=== PATIENT | female | born 1995 | race Caucasian/White ===

== ENCOUNTER 2023-03-22 08:41 | Emergency (ER) | payer BC, SELFPAY ==
[2023-03-22 08:52] VITALS: BP 137/91; PULSE 80; RESP 21; TEMP 36.8; O2SAT 96; BMI 24.5
--- NOTE | 2023-03-22 08:57 | CT_ITS ---
PROCEDURE INFORMATION: Exam: CT Head Without Contrast Exam date and time: 03/22/2023 9:31 AM Age: 27 years old Clinical indication: Pain and injury or trauma; Fall; Blunt trauma (contusions or hematomas); Headache; Additional info: Fall head injury TECHNIQUE: Imaging protocol: Computed tomography of the head without contrast. Radiation optimization: All CT scans at this facility use at least one of these dose optimization techniques: automated exposure control; mA and/or kV adjustment per patient size (includes targeted exams where dose is matched to clinical indication); or iterative reconstruction. REPORTING DATA: Count of CT and Cardiac NM exams in prior 12 months: This patient has received 0 known CTs and 0 known cardiac nuclear medicine studies in the 12 months prior to the current study. COMPARISON: No relevant prior studies available. FINDINGS: Limitations: Motion artifact does moderately limit the sensitivity of this examination. Brain: Normal. No hemorrhage. Unremarkable white matter. No mass effect. Cerebral ventricles: No ventriculomegaly. Paranasal sinuses: Visualized sinuses are unremarkable. No fluid levels. Mastoid air cells: Visualized mastoid air cells are well aerated. Bones/joints: Unremarkable. No acute fracture. Soft tissues: Fractures of the nose are discussed separately. IMPRESSION: 1. Fractures of the nose are discussed separately. 2. No acute intracranial process is identified.
--- NOTE | 2023-03-22 08:57 | CT_ITS ---
PROCEDURE INFORMATION: Exam: CT Maxillofacial Without Contrast Exam date and time: 03/22/2023 9:33 AM Age: 27 years old Clinical indication: Pain and injury or trauma; Fall; Nose pain; Blunt trauma (contusions or hematomas); Additional info: Fall nose injury TECHNIQUE: Imaging protocol: Computed tomography of the face without contrast. Radiation optimization: All CT scans at this facility use at least one of these dose optimization techniques: automated exposure control; mA and/or kV adjustment per patient size (includes targeted exams where dose is matched to clinical indication); or iterative reconstruction. REPORTING DATA: Count of CT and Cardiac NM exams in prior 12 months: This patient has received 0 known CTs and 0 known cardiac nuclear medicine studies in the 12 months prior to the current study. COMPARISON: CT HEAD/BRAIN WO CON 03/22/2023 9:31 AM FINDINGS: Orbital cavities: Orbits are normal. Globes are unremarkable. Bones/joints: Comminuted fractures of the nose and buckling of the nasal septum can be seen with anterior fragments directed toward the left. No other midface fracture is identified. There is gas in the soft tissues of the right lateral nose probably reflecting bony perforation of the deep soft tissues at the level of image 3:45. Paranasal sinuses: Normal. No air-fluid levels. Soft tissues: Unremarkable. Nasal cavity: There is mucosal thickening of the anterior nasal passages. There is no evidence of a radio-opaque foreign body. Dental: Moderate dental disease is seen. IMPRESSION: 1. Comminuted fractures of the nose and buckling of the nasal septum can be seen with anterior fragments directed toward the left. No other midface fracture is identified. 2. There is gas in the soft tissues of the right lateral nose probably reflecting bony perforation of the deep soft tissues at the level of image 3:45. 3. There is mucosal thickening of the anterior nasal passages. There is no evidence of a radio-opaque foreign body.
[2023-03-22 09:00] VITALS: BP 119/67; PULSE 79; O2SAT 95
--- NOTE | 2023-03-22 09:02 | HMH.EDGENADL ---
Discharge Plan Disposition Patient Disposition: Home, Self-Care Prescriptions Prescriptions: New hydrocodone-acetaminophen 5-325 mg tablet 1 tab PO Q6H PRN (Reason: pain) 3 Days Qty: 12 0RF Referrals Follow up/Referrals: Rodolfo Tucker MD [Physician] - See instructions (Given appointment with Dr. Patterson on at 2 PM tomorrow.) Activity Restrictions/Add. Instructions Additional Instructions/Restrictions: Follow-up with Dr. Tucker at 2 PM tomorrow. Clinical Impressions Clinical Impression: Closed displaced fracture of nasal bone Discharge ED Provider: Valarie De General Adult HPI General Chief complaint: PAIN Stated complaint: [id number] Nose Injury,home Time Seen by Provider: 03/22/23 08:52 Mode of Arrival: Wheelchair Source of Information: Patient Limitations: No Limitations Description of Symptoms (Recalled from ER Triage Doc. by RN): pt to ed c/o nasal pain. pt reports stepping into a vehicle, slipping on the running board and falling face first into the door panel. pt denies LOC. pt denies taking any blood thinners. History of Present Illness HPI narrative: 27-year-old female here in [facility] from [facility] for her sister's . She was getting into a truck and slipped on the side rail and fell and hitting directly into her nose and face. She has significant deformity of her nose and bleeding from her bilateral nares. No significant loss of consciousness no anticoagulation or antiplatelet agents. No other medical problems no other injuries no neck pain neurologic symptoms or other complaints. Related Data Previous Rx's Medication Instructions Recorded hydrocodone 5 mg-acetaminophen 325 1 tab PO Q6H PRN pain 3 days #12 03/22/23 mg tablet tabs Allergies Allergy/AdvReac Type Severity Reaction Status Date / Time shellfish derived Allergy Verified 03/22/23 09:07 [facility] Disclaimer: The information contained in this section may have been updated after the patient was seen, as this information can be updated by other users. Social History Smoking Status: Current every day smoker alcohol intake: never current occupational status: other Travel in the last 8 weeks: None ROS Obtained: Yes All systems reviewed & no additional complaints except as documented Physical Exam General General appearance: alert Head Head exam: other (Nasal bridge swollen inflamed laterally deviated nose with active blood but no septal hematomas noted) ENT ENT exam: Present other (Nasal bone fracture and displacement as above) Respiratory Respiratory exam: Present normal lung sounds bilaterally and respiratory distress Cardiovascular Cardiovascular exam: Present regular rate; Absent tachycardia Neurological Exam Neurological exam: Present alert and oriented X3 Medical Decision Making Miky Inquiry Pt receiving controlled substance: No Vital Signs: 03/22/23 08:52 03/22/23 09:00 Temperature 98.2 F Temperature Source Oral Pulse Rate 79 Pulse Rate [Left Radial] 80 Respiratory Rate 21 Blood Pressure 119/67 Blood Pressure [Right Arm] 137/91 H Blood Pressure Mean 84 Blood Pressure Mean [Right Arm] 106 02 Sat by Pulse Oximetry 96 95 Oxygen Delivery Method Room Air Lab Data Lab Results 03/22/23 09:08: Urine HCG, Qual Negative Orders (Tests/Meds): ED MEDICATIONS Discontinued Medications Generic Name Dose Route Start Last Admin Trade Name Freq PRN Reason Stop Dose Admin Hydrocodone Bitart/Acetaminophen 1 tab 03/22/23 08:58 03/22/23 09:08 Hydrocodone/Apap 5/325 Mg Tablet PO 03/22/23 08:59 1 tab ONCE ONE Administration ORDERS Category Date Time Status CT facial bones wo con Stat Cat Scan 03/22/23 08:[address] head/brain wo con Stat Cat Scan 03/22/23 08:57 Completed Urine , HCG Qual. Stat Lab 03/22/23 09:08 Completed Medical Decision Narrative: 27-year-old female with obvious facial trauma and clini
--- NOTE | 2023-03-22 09:07 | PC.NURSE ---
pt ambulatory to restroom without complications. Hooked back up to monitor
--- NOTE | 2023-03-22 09:10 | PC.NURSE ---
Dr. De s/w ENT [facility]. States Dr. Tucker can see pt in office tomorrow
[2023-03-22 09:25] LABS: Urine Pregnancy, HCG Qual. Negative (Negative)
--- NOTE | 2023-03-22 09:34 | PC.NURSE ---
From CT via wheelchair
[2023-03-22 09:56] VITALS: BP 119/87; PULSE 85; RESP 20; TEMP 36.8; O2SAT 99
== END 2023-03-22 09:57 | disposition home or self-care (01) ==
PROVIDERS: Emergency Provider Student in an Organized Health Care Education/Training Program
DX: S02.2XXA Fracture of nasal bones, initial encounter for closed fracture (principal); V48.4XXA Person boarding or alighting a car injured in noncollision transport accident, initial encounter; F17.200 Nicotine dependence, unspecified, uncomplicated
CPT/HCPCS: 70450; 70486; 81025; 99285

== ENCOUNTER → 2023-03-23 15:21 | Outpatient (CLI) | payer BC, SELFPAY ==
[2023-03-23 17:00] LABS: Urine Pregnancy, HCG Qual. Negative (Negative)
== END ==
LOC: LAB 15:22
PROVIDERS: Visit Provider Nurse Practitioner
DX: Z01.812 Encounter for preprocedural laboratory examination (principal); S02.2XXA Fracture of nasal bones, initial encounter for closed fracture
CPT/HCPCS: 81025

== ENCOUNTER 2023-03-28 08:34 | Day surgery (SDC) | payer BC, SELFPAY ==
[2023-03-28] VITALS (13 sets, daily range): BP systolic 105–128; BP diastolic 65–87; PULSE 68–83; RESP 12–18; TEMP 36.2–36.8; O2SAT 73–100; BMI 24.1
--- NOTE | 2023-03-28 09:25 | P.PNANES_ITS ---
[facility] Disclaimer: The information contained in this section may have been updated after the patient was seen, as this information can be updated by other users. Medical History Anxiety and depression delivery delivered Surgical History History of delivery Family History Other Family history of cancer Social History Smoking Status: Current every day smoker alcohol intake: never substance use type: denies use current occupational status: employed and other Travel in the last 8 weeks: Inside the [place] [facility] Anesthesia Checklist Patient Identification Patient Identification: Arm Band and Verbal (Name & ) Structural Data Admitted From: Home Planned Operative Procedure/s: Closed reduction nasal fracture Consent for Planned Operative Procedure(s) Verified: Yes NPO Status Verified Time NPO: 00:00 Chart Verification Results Verified: HCG Additional verifications Anesthesia Reactions: No Airway Assessment Mallampati Score:: Class I C-Spine Mobility Assessed: Yes TMJ Mobility Assessed: Yes Dentition: Good Dentition Neurological Assessment Level of Consciousness: Awake Hx Seizures: No Numbness or tingling in extremities: No Anesthesia Plan Anesthesia Risk discussed: Yes Anesthesia Plan: Verified ASA Class: II Anesthesia Type: General
--- NOTE | 2023-03-28 10:40 | EXP.OP.NOTE ---
Date of procedure: 03/28/23 Pre-op Diagnosis:: Displaced nasal and nasoseptal fracture Post-op Diagnosis:: Same Procedure performed:: 1. Closed reduction septal fracture 2. Closed reduction nasal fracture with stabilization Surgeon:: Vahe Mcdonald III, MD CABINET PROFESSIONAL:: Other Anesthesia: GETA Estimated blood loss (mL): 10 Operative findings:: Severely displaced nasal dorsum to left with displaced septal fracture to right Operative note:: The patient was brought to the operating room placed under general inhalational anesthetic with IV sedation and an LMA device. Topical Afrin had been applied to the nasal cavity preoperatively. Afrin and lidocaine soaked cottonoids were then placed intranasally. I also injected 1% lidocaine with epinephrine into the displaced nasal septal fracture on the right side. After adequate time was allowed for vasoconstriction, I removed the cottonoids and inspect the nasal cavity. Using a Muller septal displace or was able to move the septal fracture towards the midline from the right side. It was evident that this had been fractured acutely and did move back towards the midline with just a slight irregularity. I then used the same instrument to elevate the right nasal bones as I shifted the nasal pyramid from left to right back to the midline. There was an audible and palpable pop as it moved back into position. There is evidence of comminution on the left side these bone fragments were elevated in the proper position. Once this was completed, I then placed a tape dressing over the nose followed by Warren splint that was formed fitted over the nasal dorsum. The patient was then awakened in the operating room and taken recovery in good condition. Condition: stable Disposition: PACU Complications:: None
--- NOTE | 2023-03-28 10:41 | P.PNANES_ITS ---
[facility] Anesthesia Record Part I Anesthesia Record I Intake, IV Amount: 600 Hydration: Adequate Estimated blood loss (mL): 0 Urine output (mL): 0 Blood Products used (#): none Blood Pressure: 128/80 SaO2: 96 Pulse Rate: 75 Airway Patency: Patent Respiratory Rate: 12 Temperature: 97.2 F Patient is:: Awake and Stable Stable to PACU at:: 10:36
--- NOTE | 2023-03-28 14:00 | EXP.ANES.II ---
[facility] Anesthesia Record Part II Anesthesia Record Part II Discharge Time: 11:16 Destination: Surgical Day Care (OP Surgery) PACU nurse assessment reviewed?: Yes Patient Condition:: Good Anesthesia Complications:: None Swallowing reflex intact?: Yes Airway Patency: Patent Cyanosis?: No Blood Pressure: 116/86 SaO2: 73 Respiratory Rate: 18 Pulse Rate: 73 Temperature: 98.2 F Mental Status: Alert & Oriented Pain level:: 5 Nausea and/or vomitting:: None Intake, IV Amount: 0 Hydration: Adequate
== END 2023-03-28 12:12 | disposition home or self-care (01) ==
PROVIDERS: Visit Provider Otolaryngology
PROC: 0NSBXZZ Reposition Nasal Bone, External Approach (ICD-10-PCS; CPT 21315; principal; 2023-03-28 09:45)
DX: S02.2XXA Fracture of nasal bones, initial encounter for closed fracture (principal)
CPT/HCPCS: 21315; 21337; J2405